=== PATIENT | male | born 1980 | race Caucasian/White ===

== ENCOUNTER 2023-10-17 13:01 | Outpatient (CLI) | payer OTHER ==
--- NOTE | 2023-10-19 09:53 | MRI Report ---
PROCEDURE: Shoulder RT WO INDICATIONS: RIGHT SHOULDER PAIN TECHNIQUE: Noncontrast oblique coronal T2 fast spin echo with fat saturation, oblique sagittal T1 spin echo and T2 fast spin echo with fat saturation, axial T1 spin echo and T2 fast spin echo with fat saturation t hrough the shoulder. COMPARISON: None FINDINGS: Image quality: Diagnostic Rotator cuff Bulk: No significant atrophy Teres minor: Intact Supraspinatus: Small interstitial tear. Mild tendinosis, including possible calcific tendinopathy Infraspinatus: Small articular sided tear near the insertion. Superimposed mild tendinopathy Subscapularis: Moderate tendinopathy and thickening. Partial thickness interstitial and articular queta ed tears. Bones and bursae GH joint: Mild degenerative changes, no subchondral edema Trace joint fluid. AC joint: Moderate degenerative changes. Humeral head: No acute fracture Scapula and acromion: Intact Bursa: No significant fluid Capsule Labrum: Signal abnormality at the superior labrum is present, also probably including a suspected sub labral recess. There is also signal abnormality involving the posterior labrum. Long head biceps tendon: Suspected small intra-articular split tear and tendinosis IGHL: Intact Rotator interval: Fat signal is preserved Soft tissues: No axillary adenopathy. Lungs are not well seen. IMPRESSION: On this nonarthrographic study, suspect a semicircumferential labral tear involving the superior post erior labrum, including the biceps anchor. There may be a small split tear in the intra-articular asp ect of the long head biceps tendon. No full-thickness rotator cuff defect. Multifocal areas of tendinopathy and partial tears as above. Mild glenohumeral and moderate acromioclavicular degenerative changes. Trace glenohumeral joint fluid . Reviewed by: Noam Vincent MD on 10/19/2023 9:52 AM PST Approved by: Noam Vincent MD on 10/19/2023 9:52 AM PST Station ID: [id number]
== END 2023-10-17 13:02 | disposition home or self-care (01) ==
LOC: DI 13:01
PROVIDERS: ATTEND Orthopaedic Surgery
DX: M19.011 Primary osteoarthritis, right shoulder (principal); M25.411 Effusion, right shoulder; M67.813 Other specified disorders of tendon, right shoulder; M75.111 Incomplete rotator cuff tear or rupture of right shoulder, not specified as traumatic; S52.121A Displaced fracture of head of right radius, initial encounter for closed fracture; S53.431A Radial collateral ligament sprain of right elbow, initial encounter; S56.511A Strain of other extensor muscle, fascia and tendon at forearm level, right arm, initial encounter; M25.421 Effusion, right elbow; M67.823 Other specified disorders of tendon, right elbow

== ENCOUNTER 2023-10-17 13:04 | Outpatient (CLI) | payer OTHER ==
--- NOTE | 2023-10-19 10:02 | MRI Report ---
PROCEDURE: Elbow RT WO INDICATIONS: RIGHT ELBOW STRAIN TECHNIQUE: Noncontrast coronal proton density fast spin echo and T2 fast spin echo with fat saturation, axial an d sagittal T1 spin echo and T2 fast spin echo with fat saturation through the elbow. COMPARISON: None. FINDINGS: Image quality: Excellent. Lateral structures: There is low-grade partial intrasubstance tearing of the common extensor tendon at the origin superimposed on mild tendinosis. Remote prior low-grade sprain of the proximal radial c ollateral ligament. The lateral ulnar collateral ligament is intact. Medial structures: The ulnar collateral ligament appears intact. The overlying common flexor tendon demonstrates mild tendinosis proximally. The ulnar nerve appears normal in size and signal within t he cubital tunnel. Anterior structures: The biceps and brachialis tendons both appear intact as they insert onto the pr oximal radius and ulna, respectively. No bicipitoradial bursal fluid. The median and radial neurova scular bundles appear normal; no focal muscle atrophy to suggest nerve impingement. Posterior structures: The triceps tendon appears intact. No olecranon bursal fluid. Bone and cartilage: There is a minimally displaced transverse intra-articular fracture of the radial head. No significant step-off is seen at the distal radial articular surface. There is a small millim eters post fracture of the tip of the coronoid process of the ulna. A moderate joint effusion is pres ent. IMPRESSION: 1.Minimally displaced intra-articular fracture of the radial head. 2.Suspected tiny minimally fracture at the tip of the coronoid process. 3.Low-grade sprain of the proximal radial collateral ligament. The lateral ulnar collateral ligament is intact. 4.Low-grade bursal surface tearing of the common extensor tendon at the origin superimposed on modera te chronic tendinosis. 5.Mild proximal common flexor tendinosis. 6.Moderate joint effusion. Reviewed by: Dwayne Baer MD on 10/19/2023 10:00 AM PST Approved by: Dwayne Baer MD on 10/19/2023 10:00 AM PST Station ID: [id number]
== END 2023-10-17 13:05 | disposition home or self-care (01) ==
LOC: DI 13:04
PROVIDERS: ATTEND Orthopaedic Surgery
DX: S52.121A Displaced fracture of head of right radius, initial encounter for closed fracture (principal); S53.431A Radial collateral ligament sprain of right elbow, initial encounter; S56.511A Strain of other extensor muscle, fascia and tendon at forearm level, right arm, initial encounter; M67.823 Other specified disorders of tendon, right elbow; M25.421 Effusion, right elbow